=== PATIENT | female | born 1950 | race Caucasian/White ===

== ENCOUNTER 2018-12-14 13:43 | Emergency (ER) | payer BC ==
[~2018-12-14] VITALS: Ht 149.9 cm; Wt 47.0 kg
[2018-12-14 13:46] VITALS: BP 147/75
[2018-12-14] MEDS ORDERED: PRED20TA PO (14:12)
== END 2018-12-14 14:21 | disposition home or self-care (01) ==
LOC: ER 13:43
DX: L25.9 Unspecified contact dermatitis, unspecified cause (principal); Z88.5 Allergy status to narcotic agent; Z88.1 Allergy status to other antibiotic agents; Z79.899 Other long term (current) drug therapy
CPT/HCPCS: 99283